=== PATIENT | male | born 1930 | race Caucasian/White ===

== ENCOUNTER 2020-10-29 03:41 | Emergency (ER) | payer OTHER ==
[~2020-10-29] VITALS: Ht 193 cm; Wt 66.0 kg
--- NOTE | 2020-10-29 03:52 | NUR ---
PT LIVES AT HOME WITH AND C/O WEAKNESS X 24 HOURS AND HAD A FALL WITHIN THE LAST WEEK AND C/O PAIN TO LEFT KNEE AND PAIN WITH WALKING
[2020-10-29] MEDS ORDERED: PLEASE ENTER ALLERGIES MC SCH (04:00)
[2020-10-29] MEDS ORDERED: SODIUM CHLORIDE 0.9% 1,000 ML IV ONE (04:00)
[2020-10-29] MEDS ORDERED: SODIUM CHLORIDE FLUSH 10ML SYR IVF ONE (04:00)
[2020-10-29 04:16] LABS: BASOPHILS % (AUTO) 1 % (0-1); EOSINOPHILS % (AUTO) 1 % (1-7); LYMPHOCYTES % (AUTO) 16 % (22-44); MEAN CORPUSCULAR HEMOGLOBIN 34.4 pg (27.5-34.5); MEAN CORPUSCULAR HGB CONC 34.1 g/dL (33.2-36.2); MEAN PLATELET VOLUME 8.5 fL (7.4-10.4); MONOCYTES % (AUTO) 10 % (2-9); NEUTROPHILS % (AUTO) 72 % (42-75); PLATELET COUNT 162 x10^3/uL (130-400); RED BLOOD COUNT 4.36 x10^6/uL (4.38-5.82); RED CELL DISTRIBUTION WIDTH 13.7 % (9.4-14.8)
[2020-10-29 04:25] LABS: ALANINE AMINOTRANSFERASE 38 U/L (12-78); ALBUMIN 3.1 g/dL (3.4-5.0); ANION GAP 9 mmol/L (5-15); CALCIUM 8.4 mg/dL (8.5-10.1); CHLORIDE 107 mmol/L (98-107); CREATININE 0.64 mg/dL (0.7-1.3)
[2020-10-29 04:27] LABS: ALKALINE PHOSPHATASE 86 U/L (45-117); BILIRUBIN,TOTAL 0.9 mg/dL (0.2-1.0)
[2020-10-29 05:08] LABS: MICROSCOPIC INDICATED
--- NOTE | 2020-10-29 05:34 | NUR ---
pt given heated blankets. no additional needs or questions. nadn. resendez. jemtm
--- NOTE | 2020-10-29 05:54 | NUR ---
PT AMBULATED AROUND HALF OF ER WITH STEADY GAIT. PASSED ROAD TEST. ATTACHED TO MONITORS. COLLETTE. LALY. KAYLATM
[2020-10-29 05:56] VITALS: BP 150/61
--- NOTE | 2020-10-29 06:04 | NUR ---
Patient/Caregiver given discharge instructions and they have confirmed that they understand the instructions. Patient ambulatory with steady gait. NAD, all questions answered appropriately, denies additional needs at this time. No personal belongings left in room after discharge.
== END 2020-10-29 06:05 | disposition home or self-care (01) ==
LOC: ED 05:59
DX: G89.11 Acute pain due to trauma (principal); M25.562 Pain in left knee; R53.1 Weakness; R51.9 Headache, unspecified; R07.89 Other chest pain; W01.0XXA Fall on same level from slipping, tripping and stumbling without subsequent striking against object, initial encounter; Y93.89 Activity, other specified; Y92.89 Other specified places as the place of occurrence of the external cause; Y99.8 Other external cause status
CPT/HCPCS: 36415; 70450; 71045; 73560; 80053; 81001; 85025; 93005; 99285; J7030